=== PATIENT | female | born 1935 | race Caucasian/White ===

== ENCOUNTER 2024-05-22 08:11 | Inpatient (IN) ==
[2024-05-22 10:00] LABS: ABS Lymphocytes 0.7 10^3/uL (1.0-4.8); ABS Monocytes 0.3 10^3/uL (0.0-0.9); ABS Neutrophils 9.8 10^3/uL (1.5-7.6); Hematocrit 32.4 % (35-45); Hemoglobin 10.2 g/dL (11.5-14.3); Lymphocyte % 6.8 %; Mean Corpuscular Hemoglobin 24.7 pg (27-33); Mean Corpuscular Hgb Conc 31.5 g/dL (31-36); Mean Corpuscular Volume 78.4 fL (80-97); Mean Platelet Volume 8.9 fL (7.5-11.2); Platelet Count 235 10^3/uL (150-450); Red Blood Count 4.14 10^6/uL (3.63-4.92); Red Cell Distribution Width 17.9 % (12-17)
[2024-05-22 10:23] LABS: High Sens Troponin Baseline 396 pg/mL (<15)
[2024-05-22 10:30] LABS: ALT 10 U/L (7-52); AST 12 U/L (13-39); Albumin 3.8 g/dL (3.2-5.2); Albumin/Globulin Ratio 1.2 (1-3); Alkaline Phosphatase 84 U/L (35-149); Anion Gap 11 mmol/L (2-16); Blood Urea Nitrogen 23 mg/dL (6-24); CO2 Carbon Dioxide 28 mmol/L (22-32); Chloride 100 mmol/L (101-111); Creatinine, Serum 1.28 mg/dL (0.51-0.95); Globulin 3.1 g/dL (2-4); Glucose 182 mg/dL (70-100); Potassium 4.7 mmol/L (3.5-5.0); Sodium 139 mmol/L (135-145); Total Bilirubin 0.5 mg/dL (0.2-1.0); Total Protein 6.9 g/dL (6.4-8.9); eGFR CKD-EPI 40.8 (>60)
[2024-05-22] MEDS ORDERED: Iodixanol (CONTRAST) 320 MG/ML 100 ML SDV IV ONE (10:53)
[2024-05-22 11:48] LABS: High Sensitivity Troponin 1 Hr 381 pg/mL (<15)
[2024-05-22] MEDS: Iodixanol (CONTRAST) 320 MG/ML 100 ML SDV IV ONE (12:17)
[2024-05-22] MEDS: Albuterol/Ipratropium NEB.SOL (2.5/0.5 MG) 3 ML NEB.SOLN INH ONE (14:09)
[2024-05-22 14:23] LABS: C Reactive Protein 136.96 mg/L (<8.01)
[2024-05-22] MEDS ORDERED: Dextrose 50% Syringe 50 ml 25 GM/50 ML SYRINGE IV PUSH PRN (14:41)
[2024-05-22] MEDS: cefTRIAXone 1 gm/50 mL D5W 1 GM/50 ML BAG IV SCH (15:20)
[2024-05-22] MEDS: Levalbuterol 1.25MG/0.5ML NEB.SOL INH SCH (16:03)
[2024-05-22] MEDS: Azithromycin 500 mg/250 ml NS 500 MG/250 ML BAG IVPB SCH (16:12)
[2024-05-22] MEDS: methylPREDNISolone SOD SUCC 40 mg/ml 1 ml VIAL IV SCH (16:12)
[2024-05-22] MEDS: Morphine 2 MG/ML SYRINGE IV ONE (16:23)
[2024-05-22] MEDS: Sulfur Hexaflouride MICROSPHR 25 MG VIAL IV ONE (16:50)
[2024-05-22] MEDS ORDERED: Sulfur Hexaflouride MICROSPHR 25 MG VIAL ONE (16:55)
[2024-05-22 17:15] LABS: TSH Ultra Thyroid Stim Horm 0.44 mcIU/mL (0.34-5.60)
[2024-05-22] MEDS ORDERED: Levalbuterol 1.25MG/0.5ML NEB.SOL INH PRN (17:45)
[2024-05-22] MEDS: Pentoxifylline CR 400 mg TAB 400 MG PO SCH (20:41)
[2024-05-22] MEDS: Senna TAB 8.6 mg TAB PO SCH (20:43)
[2024-05-22] MEDS: Enoxaparin 100 MG/ML SYR SUBCUT SCH (20:43)
[2024-05-22] MEDS: Latanoprost 0.005% 2.5 ml BTL RIGHT EYE SCH (20:45)
[2024-05-22 22:30] LABS: % Iron Saturation 8 % (15-55); .Transferrin 263 mg/dL (203-362); Iron 31 ug/dL (50-212); Total Iron Binding Capacity 368 mcg/dL (250-450); Unsaturated Iron Binding 337 ug/dL
[2024-05-22 22:52] LABS: Ferritin 23.4 ng/mL (11-307)
[2024-05-22 22:56] LABS: Folate > 20.00 ng/mL (5.90-24.80)
[2024-05-22 22:57] LABS: Vitamin B12 420 pg/mL (180-914)
[2024-05-23] MEDS: Levalbuterol 1.25MG/0.5ML NEB.SOL INH SCH ×2 (01:53→12:58)
[2024-05-23 06:27] LABS: ABS Lymphocytes 0.8 10^3/uL (1.0-4.8); ABS Monocytes 0.5 10^3/uL (0.0-0.9); ABS Neutrophils 10.4 10^3/uL (1.5-7.6); ABS Nucleated RBC 0.01 10^3/ul; Hematocrit 30.3 % (35-45); Hemoglobin 9.4 g/dL (11.5-14.3); Lymphocyte % 6.5 %; Mean Corpuscular Hemoglobin 24.4 pg (27-33); Mean Corpuscular Hgb Conc 30.9 g/dL (31-36); Mean Platelet Volume 9.6 fL (7.5-11.2); Nucleated Red Blood Cells % 0.1 %/100WBC (0.0-0.8); Platelet Count 247 10^3/uL (150-450); Red Blood Count 3.84 10^6/uL (3.63-4.92); Red Cell Distribution Width 18.4 % (12-17); White Blood Count 11.7 10^3/uL (3.8-11.8)
[2024-05-23 06:34] LABS: Calcium 9.2 mg/dL (8.6-10.3); Creatinine, Serum 1.38 mg/dL (0.51-0.95); Magnesium 2.2 mg/dL (1.9-2.7); Potassium 5.1 mmol/L (3.5-5.0); eGFR CKD-EPI 37.3 (>60)
[2024-05-23] MEDS ORDERED: Regadenoson 0.4 MG/5 ML SYRINGE ONE (09:51)
[2024-05-23] MEDS ORDERED: Aminophylline 25 MG/ML VIAL ONE (09:51)
[2024-05-23] MEDS ORDERED: guaiFENesin/CODIENE 100mg/10mg 5 ML UDC PO PRN (10:10)
[2024-05-23] MEDS: methylPREDNISolone SOD SUCC 40 mg/ml 1 ml VIAL IV SCH (11:18)
[2024-05-23] MEDS: Polyethylene Glycol 3350 17 GM PACKET PO SCH (11:23)
[2024-05-23] MEDS: Mometasone/Formoter 100/5 MDI INH SCH (12:58)
[2024-05-23] MEDS ORDERED: Albuterol/Ipratropium NEB.SOL (2.5/0.5 MG) 3 ML NEB.SOLN INH SCH (13:00)
[2024-05-23] MEDS: cefTRIAXone 1 gm/50 mL D5W 1 GM/50 ML BAG IV SCH (15:53)
[2024-05-24 05:39] LABS: ABS Lymphocytes 0.7 10^3/uL (1.0-4.8); ABS Monocytes 0.2 10^3/uL (0.0-0.9); ABS Neutrophils 11.2 10^3/uL (1.5-7.6); ABS Nucleated RBC 0.01 10^3/ul; Hematocrit 30.2 % (35-45); Hemoglobin 9.3 g/dL (11.5-14.3); Lymphocyte % 5.4 %; Mean Corpuscular Hemoglobin 24.3 pg (27-33); Mean Corpuscular Hgb Conc 30.7 g/dL (31-36); Mean Corpuscular Volume 79.1 fL (80-97); Mean Platelet Volume 9.2 fL (7.5-11.2); Platelet Count 248 10^3/uL (150-450); Red Blood Count 3.82 10^6/uL (3.63-4.92); Red Cell Distribution Width 17.6 % (12-17); White Blood Count 12.1 10^3/uL (3.8-11.8)
[2024-05-24 05:50] LABS: Calcium 8.8 mg/dL (8.6-10.3); Creatinine, Serum 1.28 mg/dL (0.51-0.95); Magnesium 2.3 mg/dL (1.9-2.7); Phosphorus 3.8 mg/dL (2.5-5.0); Potassium 5.2 mmol/L (3.5-5.0); eGFR CKD-EPI 40.8 (>60)
[2024-05-24] MEDS: Acetaminophen IV 1 GM/100ML 750 MG/75 ML BAG IV ONE (08:07)
[2024-05-24] MEDS: Iron Sucrose 200 MG in NS 0.9% 100 ml BAG 100 ML IVPB ONE (20:35)
[2024-05-25 06:35] LABS: Urine Appearance Clear; Urine Bilirubin Negative (Negative); Urine Blood Negative (Negative); Urine Color Light-Yellow; Urine Glucose 1+ (>=70 mg/dL) (Negative); Urine Ketones Negative (Negative); Urine Nitrite Negative (Negative); Urine Protein Negative (Negative); Urine Specific Gravity 1.016 (1.002-1.030); Urine Urobilinogen Negative (Negative); Urine pH 6.5 (5.0-8.0)
[2024-05-25 07:42] LABS: ABS Lymphocytes 1.3 10^3/uL (1.0-4.8); ABS Monocytes 1.1 10^3/uL (0.0-0.9); ABS Neutrophils 8.9 10^3/uL (1.5-7.6); ABS Nucleated RBC 0.01 10^3/ul; Hematocrit 30.5 % (35-45); Hemoglobin 9.6 g/dL (11.5-14.3); Lymphocyte % 11.5 %; Mean Corpuscular Hemoglobin 24.9 pg (27-33); Mean Corpuscular Hgb Conc 31.6 g/dL (31-36); Mean Platelet Volume 8.8 fL (7.5-11.2); Nucleated Red Blood Cells % 0.1 %/100WBC (0.0-0.8); Platelet Count 259 10^3/uL (150-450); Red Blood Count 3.86 10^6/uL (3.63-4.92); Red Cell Distribution Width 18.3 % (12-17); White Blood Count 11.3 10^3/uL (3.8-11.8)
[2024-05-25 08:08] LABS: Calcium 8.8 mg/dL (8.6-10.3); Creatinine, Serum 1.22 mg/dL (0.51-0.95); Magnesium 2.2 mg/dL (1.9-2.7); Phosphorus 2.9 mg/dL (2.5-5.0); Potassium 4.8 mmol/L (3.5-5.0); eGFR CKD-EPI 43.2 (>60)
[2024-05-25 10:08] VITALS: BP 119/77
[2024-05-25] MEDS: cefTRIAXone 1 gm/50 mL D5W 1 GM/50 ML BAG IV SCH (11:18)
== END 2024-05-25 14:06 | disposition home or self-care (01) | DRG 194 ==
LOC: ED 08:11 → SUATTDRO 12:01 → INTOOBSV 12:01 → EDHOLD 12:01 → MEDTELE 17:36
PROVIDERS: ADMIT Student in an Organized Health Care Education/Training Program; ATTEND Internal Medicine